=== PATIENT | female | born 1945 | race Caucasian/White ===

== ENCOUNTER 2019-05-13 10:22 | Emergency (ER) | payer MEDICARE, OTHER ==
[2019-05-13 10:32] VITALS: BP 164/82
[2019-05-13] MEDS ORDERED: ACETAMINOPHEN 325 MG TABLET PO STA (11:03)
--- NOTE | 2019-05-13 11:06 | ED Physician Documentation ---
History of Present Illness - Stated complaint Stated Complaint: LEG PX - Chief complaint Chief Complaint: Ext Problem - History obtained from History obtained from: Patient - History of Present Illness Timing: Today Pain level max: 7 Pain level now: 7 Improved by: rest Worsened by: movement - Additonal information Additional information: Pt playing pickleball today, felt a pain in the posterior calf/heel area. now unable to bear weight. Review of Systems Constitutional: denies: Fever, Chills GI: denies: Nausea Skin: denies: Rash Musculoskeletal: denies: Neck pain, Back pain Neurologic: denies: Headache PD PAST MEDICAL HISTORY - Past Medical History Cardiovascular: None Respiratory: None Endocrine/Autoimmune: None GI: None : None HEENT: None Psych: None Musculoskeletal: None Derm: None - Past Surgical History /FUND RAISER: Tubal ligation, Breast reduction HEENT: Cataracts, Tonsil/Adenoidectomy, Other - Present Medications Home Medications: Ambulatory Orders Medication Instructions Recorded Confirmed Fexofenadine HCl [Pat] 180 mg PO 12/05/13 12/05/13 Aspirin 12/06/13 12/06/13 - Allergies Allergies/Adverse Reactions: Allergies Allergy/AdvReac Type Severity Reaction Status Date / Time No Known Drug Allergies Allergy Verified 12/06/13 07:33 - Social History Does the pt smoke?: No Smoking Status: Never smoker PD ED PE NORMAL - Vitals Vital signs reviewed: Yes - General General: Alert and oriented X 3, No acute distress, Well developed/nourished - Derm Derm: Warm and dry - Extremities Extremities: Other (L LE - No bony tenderness about the left ankle or foot. Mild tenderness over the calcaneus. Neurovascular intact. Condon's test results in a downward flexion of the foot. Tenderness along the Achilles tendon.) - Neuro Neuro: Alert and oriented X 3 - Psych Psych: Normal mood, Normal affect Results - Vitals Vitals: Vital Signs - 24 hr 05/13/19 10:27 Temperature 36.4 C L Heart Rate 84 Respiratory 16 Rate Blood Pressure 164/82 H O2 Saturation 98 Oxygen O2 Source Room air - Rads (name of study) Left ankle x-ray Radiology: Prelim report reviewed, EMP read contemporaneously, See rad report (No acute abnormality) PD MEDICAL DECISION MAKING - ED course Complexity details: reviewed results, re-evaluated patient, considered differential, d/w patient, d/w family ED course: 74-year-old female presents to the emergency department with what appears to be an Achilles tendon strain. No acute findings on x-ray. Placed in a walking boot for comfort. Has crutches at home. Declines a walker. We will have her follow-up with orthopedics for further care. She declines anything stronger for pain that Tylenol. Patient counseled regarding signs and symptoms for which I believe and urgent re-evaluation would be necessary. Patient with good understanding of and agreement to plan and is comfortable going home at this time This document was made in part using voice recognition software. While efforts are made to proofread this document, sound alike and grammatical errors may occur. Departure - Departure Disposition: 01 Home, Self Care Clinical Impression: Strain of left Achilles tendon Qualifiers: Encounter type: initial encounter Qualified Code(s): S86.012A - Strain of left Achilles tendon, initial encounter Condition: Good Instructions: Achilles Tendonitis Follow-Up: Provider,Other [Primary Care Provider] - [facility] [Provider Group] - Within 1 week Comments: You may bear weight as tolerated. You will likely need to use crutches as well for the first several days. Return if you worsen. Follow-up with orthopedics for further care. Your x-ray does not show any acute abnormalities today. Discharge Date/Time: 05/13/19 12:18
--- NOTE | 2019-05-13 11:44 | XRAY Report ---
Reason: L ankle pain/calcaneus pain, s/p fall Procedure Date: 05/13/2019 Accession Number: [id number] / [id number] Procedure: XR - Ankle 3 View LT CPT Code: FULL RESULT: EXAM: LEFT ANKLE RADIOGRAPHY EXAM DATE: 05/13/2019 11:20 AM. CLINICAL HISTORY: L ankle pain/calcaneus pain, s/p fall. COMPARISON: None. TECHNIQUE: 3 views. FINDINGS: Bones: No acute fracture lines are seen. Plantar calcaneal spur is noted. Joints: Normal alignment of the ankle mortise without subluxation. Osteophyte seen at the ankle joint. Soft Tissues: No soft tissue swelling. Subtle calcific density seen adjacent to the Achilles tendinous insertion of the calcaneus, which may be sequelae of remote trauma or chronic degenerative change.. IMPRESSION: 1. No evidence for acute fracture or dislocation of the ankle. [facility]
== END 2019-05-13 12:18 | disposition home or self-care (01) ==
LOC: ED 10:22
DX: S86.012A Strain of left Achilles tendon, initial encounter (principal); X58.XXXA Exposure to other specified factors, initial encounter; Y93.89 Activity, other specified
CPT/HCPCS: 73610; 99282; 99283; A9270